=== PATIENT | female | born 1960 | race Hispanic/Latino ===

== ENCOUNTER 2020-08-23 00:07 | Inpatient (IN) | payer MEDICARE ==
[~2020-08-23] VITALS: Ht 154.9 cm; Wt 61.2 kg
[2020-08-23] MEDS ORDERED: METOPROLOL TARTRATE INJ 1 MG/ML VIAL IV ONE ×2 (00:45→03:15)
[2020-08-23 01:04] LABS: BASOPHILS # (AUTO) 0.1 (0.0-0.1); BASOPHILS % 0.8 % (0.0-1.0); EOSINOPHILS # (AUTO) 0.5 (0.0-0.4); EOSINOPHILS % 5.6 % (0.0-6.0); HEMATOCRIT 29.7 % (34.2-44.1); HEMOGLOBIN 9.8 g/dL (12.0-16.0); LYMPHOCYTES # (AUTO) 1.4 (1.0-3.2); LYMPHOCYTES % 15.8 % (18.0-39.1); MEAN CORPUSCULAR HEMOGLOBIN 32.6 pg (28-32); MEAN CORPUSCULAR VOLUME 98.7 fL (81-99); MONOCYTES # (AUTO) 0.8 (0.2-0.8); MONOCYTES % 8.8 % (4.4-11.3); NEUTROPHILS # (AUTO) 5.9 (2.1-6.9); NEUTROPHILS % 68.8 % (38.7-80.0); PLATELET COUNT 278 x10e3/uL (140-360); RED BLOOD COUNT 3.01 x10e6/uL (3.6-5.1); RED CELL DISTRIBUTION WIDTH 13.1 % (11.7-14.4)
[2020-08-23 01:16] LABS: CLARITY,URINE CLOUDY (CLEAR); COLOR,URINE YELLOW (YELLOW); LEUKOCYTE ESTERASE ,URINE LARGE (NEGATIVE)
[2020-08-23 01:17] LABS: KETONES,URINE NEGATIVE (NEGATIVE); NITRITE,URINE NEGATIVE (NEGATIVE); PROTEIN,URINE DIPSTICK >=300 (NEGATIVE); URINE UROBILINOGEN 0.2 mg/dL (0.2 - 1)
[2020-08-23 01:21] LABS: ALBUMIN 3.3 g/dL (3.5-5.0); ALBUMIN/GLOBULIN RATIO 0.8 (0.8-2.0); ANION GAP 18.6 mmol/L (8-16); CALCIUM 8.9 mg/dL (8.4-10.2); CREATININE, SERUM 3.62 mg/dL (0.57-1.11); INR 0.93; POTASSIUM 3.6 mmol/L (3.5-5.1)
[2020-08-23 01:22] LABS: PARTIAL THROMBOPLASTIN TIME 31.9 seconds (23.8-35.5)
[2020-08-23 01:26] LABS: BACTERIA,URINE FEW /HPF; EPITHELIAL CELLS,URINE RARE /LPF; WBC,URINE (MAN) 21-50 /HPF (0-5)
[2020-08-23] MEDS ORDERED: CEFTRIAXONE SOD 1 GM/50 ML BAG IV ONE (01:30)
[2020-08-23 01:31] LABS: CREATINE KINASE MB 0.7 ng/mL (0-5.0)
[2020-08-23] MEDS ORDERED: CEFTRIAXONE SOD 1 GM in SODIUM CHLORIDE 0.9% 50ML 50 ML IV ONE (01:45)
[2020-08-23] MEDS ORDERED: ACETAMINOPHEN 325 MG TAB PO ONE (02:00)
[2020-08-23] MEDS ORDERED: IBUPROFEN 600 MG TAB PO STA (03:25)
[2020-08-23] MEDS ORDERED: IOPAMIDOL 370 MG/ML 200 ML INFUS..BTL INJ ONE (03:44)
[2020-08-23] MEDS ORDERED: SODIUM CHLORIDE 0.9% 50ML 50 ML ONE (03:44)
[2020-08-23] MEDS ORDERED: SODIUM CHLORIDE FLUSH 10 ML SYR INJ PRN (04:00)
[2020-08-23] MEDS ORDERED: ONDANSETRON HCL INJ 2MG/ML 2ML 2 MG/ML VIAL IV PRN (04:00)
[2020-08-23] MEDS ORDERED: CEFTRIAXONE SOD 1 GM/50 ML BAG IV SCH (04:00)
[2020-08-23] MEDS ORDERED: DEXTROSE 50% SYRINGE 50 ML IV PRN (04:00)
[2020-08-23] MEDS: CEFTRIAXONE SOD 1 GM in SODIUM CHLORIDE 0.9% 50ML 50 ML IV SCH (04:38)
[2020-08-23] MEDS ORDERED: CLONIDINE HCL 0.1 MG TAB PO ONE (04:45)
[2020-08-23] MEDS ORDERED: LISINOPRIL5 MG PO (08:20)
[2020-08-23] MEDS ORDERED: ASPIRIN81 MG PO (08:20)
[2020-08-23] MEDS ORDERED: AURYXIA210 MG PO (08:20)
[2020-08-23] MEDS ORDERED: METOPROLOL TART50 MG PO (08:20)
[2020-08-23] MEDS ORDERED: DIALYVITE 800-1 EACH PO (08:20)
[2020-08-23] MEDS: INSULIN REGULAR, HUMAN 100 UNIT/1 ML 3ML VIAL SQ SCH ×4 (09:14→20:51)
[2020-08-23 09:20] LABS: CREATINE KINASE MB 2.7 ng/mL (0-5.0)
[2020-08-23 10:30] VITALS: BP 94/42
[2020-08-23 10:39] VITALS: BP 94/52
[2020-08-23 11:27] VITALS: BP 106/42
[2020-08-23 16:16] VITALS: BP 158/57
[2020-08-23 17:03] LABS: CREATINE KINASE MB 4.2 ng/mL (0-5.0)
[2020-08-23] MEDS ORDERED: HEPARIN SOD (PORCINE) 1000 UNIT/ML SDV IV PRN (17:30)
[2020-08-23] MEDS ORDERED: SODIUM CHLORIDE 0.9% 1000ML 2,000 ML IV PRN (17:30)
[2020-08-23] MEDS ORDERED: MORPHINE SULFATE INJ 2 MG/ML SYR IV PRN (19:45)
[2020-08-23] MEDS ORDERED: HYDRALAZINE HCL 20 MG/ML VIAL IV PRN (19:45)
[2020-08-23] MEDS ORDERED: MELATONIN 5 MG TABLET PO PRN (19:45)
[2020-08-23 19:57] VITALS: BP 156/69
[2020-08-23 20:00] VITALS: BP 156/69
[2020-08-23] MEDS: ACETAMINOPHEN 325 MG TAB PO PRN (21:07)
[2020-08-23] MEDS ORDERED: SODIUM CHLORIDE 0.9% 1000ML 1,000 ML ONE (21:08)
[2020-08-23] MEDS: HYDRALAZINE HCL 10 MG TAB PO SCH (22:00)
[2020-08-24 00:45] VITALS: BP 126/49
[2020-08-24 04:38] VITALS: BP 113/50
[2020-08-24 04:54] LABS: BASOPHILS # (AUTO) 0.1 (0.0-0.1); BASOPHILS % 0.9 % (0.0-1.0); EOSINOPHILS # (AUTO) 0.4 (0.0-0.4); EOSINOPHILS % 3.5 % (0.0-6.0); HEMATOCRIT 29.1 % (34.2-44.1); HEMOGLOBIN 9.5 g/dL (12.0-16.0); LYMPHOCYTES # (AUTO) 1.6 (1.0-3.2); LYMPHOCYTES % 15.1 % (18.0-39.1); MEAN CORPUSCULAR HEMOGLOBIN 33.1 pg (28-32); MEAN CORPUSCULAR HGB CONC 32.6 g/dL (31-35); MEAN CORPUSCULAR VOLUME 101.4 fL (81-99); MONOCYTES # (AUTO) 0.9 (0.2-0.8); NEUTROPHILS # (AUTO) 7.4 (2.1-6.9); NEUTROPHILS % 71.2 % (38.7-80.0); PLATELET COUNT 225 x10e3/uL (140-360); RED BLOOD COUNT 2.87 x10e6/uL (3.6-5.1); RED CELL DISTRIBUTION WIDTH 13.2 % (11.7-14.4)
[2020-08-24] MEDS: HYDRALAZINE HCL 10 MG TAB PO SCH ×2 (05:01→14:00)
[2020-08-24] MEDS: CEFTRIAXONE SOD 1 GM in SODIUM CHLORIDE 0.9% 50ML 50 ML IV SCH (05:01)
[2020-08-24 05:14] LABS: ALBUMIN 2.8 g/dL (3.5-5.0); ALBUMIN/GLOBULIN RATIO 0.8 (0.8-2.0); ANION GAP 13.6 mmol/L (8-16); CALCIUM 8.8 mg/dL (8.4-10.2); CHOL/HDL RATIO 2.7 (3.0-3.6); CREATININE, SERUM 2.6 mg/dL (0.57-1.11); POTASSIUM 3.6 mmol/L (3.5-5.1)
[2020-08-24 07:00] VITALS: BP_SYST 113; BP_SYST 117; BP_DIAS 50; BP_DIAS 52
[2020-08-24] MEDS: INSULIN REGULAR, HUMAN 100 UNIT/1 ML 3ML VIAL SQ SCH ×2 (07:30→11:56)
[2020-08-24] MEDS ORDERED: CLOPIDOGREL BISULFATE 75 MG TAB PO SCH (09:00)
[2020-08-24] MEDS ORDERED: ASPIRIN 81 MG CHEW TAB PO SCH (09:00)
[2020-08-24] MEDS ORDERED: METOPROLOL TARTRATE 50 MG TAB PO SCH (09:00)
[2020-08-24] MEDS ORDERED: ISOSORBIDE MONONITRATE 30 MG TAB CR PO SCH (09:00)
[2020-08-24] MEDS: ACETAMINOPHEN 325 MG TAB PO PRN (09:48)
[2020-08-24 12:00] VITALS: BP 119/47
[2020-08-24] MEDS ORDERED: BACTRIM DS TAB1 EACH PO ×2 (14:00→14:03)
== END 2020-08-24 16:00 | disposition home or self-care (01) | DRG 689 ==
LOC: ER 00:10 → ERHOLD 04:20 → IMCU 13:34
PROVIDERS: ADMIT Internal Medicine; ATTEND Internal Medicine
PROC: 5A1D70Z Performance of Urinary Filtration, Intermittent, Less than 6 Hours Per Day (ICD-10-PCS; principal; 2020-08-23)
DX: N39.0 Urinary tract infection, site not specified (principal); N18.6 End stage renal disease; I12.0 Hypertensive chronic kidney disease with stage 5 chronic kidney disease or end stage renal disease; J90 Pleural effusion, not elsewhere classified; I25.10 Atherosclerotic heart disease of native coronary artery without angina pectoris; E11.649 Type 2 diabetes mellitus with hypoglycemia without coma; E11.22 Type 2 diabetes mellitus with diabetic chronic kidney disease; D63.1 Anemia in chronic kidney disease; Z99.2 Dependence on renal dialysis; I25.2 Old myocardial infarction; Z87.440 Personal history of urinary (tract) infections; Z88.5 Allergy status to narcotic agent; Z88.8 Allergy status to other drugs, medicaments and biological substances; Z95.1 Presence of aortocoronary bypass graft; Z79.82 Long term (current) use of aspirin; Z20.822 Contact with and (suspected) exposure to COVID-19; Z90.49 Acquired absence of other specified parts of digestive tract
CPT/HCPCS: 36415; 71045; 71260; 80053; 80061; 81001; 82550; 82553; 82948; 83605; 83880; 84484; 85025; 85379; 85610; 85730; 86706; 87040; 87086; 87186; 87340; 93005; 93306; 99285; J0696; J1644; J1817; J7030; J7799; Q9967; U0002